=== PATIENT | female | born 1985 | race Caucasian/White ===

== ENCOUNTER 2017-01-17 10:33 | Inpatient (IN) | payer OTHER ==
[~2017-01-17] VITALS: Ht 149.9 cm; Wt 43.0 kg
[2017-01-17 10:39] VITALS: BP 101/59; PULSE 83; RESP 20; TEMP 98.9; O2SAT 100
[2017-01-17] MEDS ORDERED: PREN1TAB58 (10:45)
[2017-01-17] MEDS ORDERED: SODIUM CHLOR 0.9% 1000 ML INJ 1,000 ML IV ONE ×2 (10:58→13:00)
--- NOTE | 2017-01-17 10:59 | PD ---
HPI Chief Complaint: Related Problem Time Seen by Provider: 10:59 Travel History International Travel<30 days: No Contact w/Intl Traveler<30days: No Traveled to known affect area: No History of Present Illness HPI 31-year-old female presents to the emergency department for evaluation of abdominal pain that started approximately 2 hours prior to arrival. Patient states she is 8 weeks . Her last menstrual cycle was November 16, 2016. Her vocal teacher is Dr. Forte. Patient is a P2, G0 with a previous miscarriage. She states that the previous miscarriages found on a routine ultrasound and she was giving medication and she passed the products of conception herself. The patient states that she did have some vaginal bleeding approximately 2-3 weeks ago. She states it was spotting and she followed with her vocal teacher since who has been following her beta hCG levels. She states that her last beta hCG level was approximately one half weeks ago and was around 3000. She states she had a bowel movement yesterday. She states that she did strain it had a small amount of vaginal bleeding at that time. She denies any vaginal bleeding at this time. The patient denies any fevers or chills. No chest pain or shortness of breath. She has no previous abdominal problems or surgeries. Patient states that she called her vocal teacher who is out of the country and was recommended to come to the emergency department. PFSH Past Medical History ?: LMP: NOVEMBER 16 : 2 Miscarriage: 1 Social History Alcohol Use: No Tobacco Use: No Substance Use: No Allergies-Medications (Allergen,Severity, Reaction): Coded Allergies: No Known Allergies (Unverified , 01/17/17) Reported Meds & Prescriptions Reported Meds & Active Scripts Active Reported Ketorolac (Ketorolac Tromethamine) 10 Mg Tab 10 Mg PO Q6HR PRN Vitamin Formula Tb ( Vit/Iron Fumarate/FA) 1 Each Tablet DAILY Review of Systems Except as stated in HPI: all other systems reviewed are Neg Physical Exam Narrative GENERAL: Well-nourished, well-developed female patient, afebrile. SKIN: Focused skin assessment warm/dry. HEAD: Normocephalic. Atraumatic. EYES: No scleral icterus. No injection or drainage. NECK: Supple, trachea midline. No JVD or lymphadenopathy. CARDIOVASCULAR: Regular rate and rhythm without murmurs, gallops, or rubs. RESPIRATORY: Breath sounds equal bilaterally. No accessory muscle use. Lungs sounds are clear to auscultation. GASTROINTESTINAL: Abdomen soft and nondistended. Patient has diffuse tenderness to palpation, worse around umbilicus and pelvic region. MUSCULOSKELETAL: No cyanosis, or edema. BACK: Nontender without obvious deformity. No CVA tenderness. Data Data Last Documented VS Vital Signs Date Time Temp Pulse Resp B/P Pulse Ox O2 Delivery O2 Flow Rate FiO2 01/17/17 13:01 86 20 101/61 100 Room Air 01/17/17 10:39 98.9 Orders Beta Hcg (Quant/Titer) (01/17/17 10:58) Complete Blood Count With Diff (01/17/17 10:58) Comprehensive Metabolic Panel (01/17/17 10:58) Complete Rh (01/17/17 10:58) Urinalysis - C+S If Indicated (01/17/17 10:58) Iv Access Insert/Monitor (01/17/17 10:58) Sodium Chlor 0.9% 1000 Ml Inj (Ns 1000 M (01/17/17 10:58) Ed Urine Pregnancytest Poc (01/17/17 10:58) Acetaminophen (Tylenol) (01/17/17 11:00) Ed Poc Ultrasound (01/17/17 ) Morphine Inj (Morphine Inj) (01/17/17 11:15) Ondansetron Inj (Zofran Inj) (01/17/17 11:30) Sodium Chlor 0.9% 1000 Ml Inj (Ns 1000 M (01/17/17 13:00) Us Pelvis (Ques Pr/Ect)W Trans (01/17/17 ) Admit Order (Ed Use Only) (01/17/17 13:38) Labs Laboratory Tests Test 01/17/17 01/17/17 11:18 11:37 White Blood Count 5.7 TH/MM3 Red Blood Count 3.62 MIL/MM3 Hemoglobin 11.0 GM/DL Hematocrit 32.8 % Mean Corpuscular Volume 90.8 FL Mean Corpuscular Hemoglobin 30.5 PG Mean Corpuscular Hemoglobin 33.6 % Concent Red Cell Distribution Width 13.9 % Platelet Count 186 TH/MM3 Mean Platelet Volume 9.1 FL Neutrophils (%) (Auto) 70.9 % Lymphocytes (%) (Auto) 21.3 % Monocytes (%) (Auto) 6.6 % Eosinophils (%) (Auto) 0.8 % Basophils (%) (Auto) 0.4 % Neutrophils # (Auto) 4.0 TH/MM3 Lymphocytes # (Auto) 1.2 TH/MM3 Monocytes # (Auto) 0.4 TH/MM3 Eosinophils # (Auto) 0.0 TH/MM3 Basophils # (Auto) 0.0 TH/MM3 CBC Comment DIFF FINAL Differential Comment Sodium Level 137 MEQ/L Potassium Level 4.1 MEQ/L Chloride Level 107 MEQ/L Carbon Dioxide Level 23.2 MEQ/L Anion Gap 7 MEQ/L Blood Urea Nitrogen 10 MG/DL Creatinine 0.56 MG/DL Estimat Glomerular Filtration 128 ML/MIN Rate Random Glucose 91 MG/DL Calcium Level 8.4 MG/DL Total Bilirubin 0.5 MG/DL Aspartate Amino Transf 12 U/L (AST/SGOT) Alanine Aminotransferase 17 U/L (ALT/SGPT) Alkaline Phosphatase 43 U/L Total Protein 6.4 GM/DL Albumin 3.6 GM/DL Human Chorionic Gonadotropin, 6633 MIU/ML Quant Blood Type O POSITIVE Rho(D) Type POSITIVE Urine Color LIGHT-YELLOW Urine Turbidity CLEAR Urine pH 6.5 Urine Specific [place] 1.007 Urine Protein NEG mg/dL Urine Glucose (UA) NEG mg/dL Urine Ketones TRACE mg/dL Urine Occult Blood NEG Urine Nitrite NEG Urine Bilirubin NEG Urine Urobilinogen LESS THAN 2.0 MG/DL Urine Leukocyte Esterase NEG Urine RBC LESS THAN 1 /hpf Urine WBC LESS THAN 1 /hpf Urine Squamous Epithelial 1 /hpf Cells Urine Mucus FEW /lpf Microscopic Urinalysis Comment CULT NOT INDICATED MDM Medical Decision Making Medical Screen Exam Complete: Yes Emergency Medical Condition: Yes Medical Record Reviewed: Yes Interpretation(s) Last Impressions Pelvis Ultrasound 01/17/17 0000 Signed Impressions: Service Date/Time: Tuesday, January 17, 2017 12:19 - CONCLUSION: Right adnexal tubal ring structure suspicious for ectopic and within the uterus there is a sac could potentially be pseudo-gestational sac, however a yolk sac and questionable pole is also identified. Possibility of an early intrauterine gestational and ectopic in the right adnexa should be entertained although rare. Roscoe Swain MD Differential Diagnosis Ectopic versus threatened miscarriage versus intrauterine versus UTI Narrative Course 31-year-old female presents to the emergency department for evaluation of pelvic abdominal pain that started 2 hours prior to arrival. Patient is approximately 8 weeks . CBC, CMP, beta hCG, complete RH, UA, urine test are ordered and pending. My attending physician, Dr. Gutiérrez, performed bedside ultrasound and was unable to visualize intrauterine at this time. Formal ultrasound is ordered. UPT is positive. CBC shows hemoglobin 11.0, had hematocrit 32.8. CMP shows no acute abnormality. Beta HCG is 6633. UA is negative for acute infection. Blood type is O+. Dr. Gutiérrez saw US as it was being done and called OB hospitalist for ruptured ectopic . She admitted patient. Komal Hendrickson Jan 17, 2017 10:59
[2017-01-17] MEDS ORDERED: ACETAMINOPHEN 325 MG TAB PO ONE (11:00)
[2017-01-17] MEDS ORDERED: MORPHINE SULFATE 8 MG/ML INJ IV PUSH ONE (11:15)
[2017-01-17] MEDS ORDERED: ONDANSETRON HCL 4 MG/2 ML VIAL IV PUSH ONE ×2 (11:30→12:00)
[2017-01-17 11:41] LABS: BASOPHIL % 0.4 % (0.0-2.0); EOSINOPHIL % 0.8 % (0.0-4.0); HEMATOCRIT 32.8 % (35.0-46.0); HEMO FLAGS DIFF FINAL; LYMPH % 21.3 % (9.0-44.0); LYMPHOCYTE # 1.2 TH/MM3 (1.0-4.8); MEAN CELL VOLUME 90.8 FL (80.0-100.0); MEAN CORPUSCULAR HEMOGLOBIN 30.5 PG (27.0-34.0); MEAN CORPUSCULAR HGB CONC 33.6 % (32.0-36.0); MONO % 6.6 % (0.0-8.0); NEUT % 70.9 % (16.0-70.0); PLATELET COUNT 186 TH/MM3 (150-450); RED BLOOD COUNT 3.62 MIL/MM3 (4.00-5.30); RED CELL DISTRIBUTION WIDTH 13.9 % (11.6-17.2); WHITE BLOOD COUNT 5.7 TH/MM3 (4.0-11.0)
[2017-01-17 11:53] LABS: ANION GAP 7 MEQ/L (5-15); AST (GOT) 12 U/L (15-37); BICARBONATE 23.2 MEQ/L (21.0-32.0); BLOOD UREA NITROGEN 10 MG/DL (7-18); CHLORIDE 107 MEQ/L (98-107); GLOMERULAR FILTRATION RATE 128 ML/MIN (>89); POTASSIUM 4.1 MEQ/L (3.5-5.1); SODIUM (NA) 137 MEQ/L (136-145)
[2017-01-17] MEDS ORDERED: NEOSTIGMINE 3 MG/3 ML SYR IV ONE (12:00)
[2017-01-17] MEDS ORDERED: KETOROLAC TROMETHAMINE 60 MG/2 ML (IM) VIAL IM ONE (12:00)
[2017-01-17] MEDS ORDERED: LACTATED RINGER'S 1000 ML INJ 2,000 ML IV ONE (12:00)
[2017-01-17] MEDS ORDERED: PROPOFOL 200 MG/20 ML AMP IV ONE (12:00)
[2017-01-17 12:11] LABS: ALKALINE PHOSPHATASE 43 U/L (45-117); ALT (GPT) 17 U/L (10-53); BETA HCG QUANT 6633 MIU/ML (0-5); TOTAL BILIRUBIN ADULT 0.5 MG/DL (0.2-1.0)
[2017-01-17 12:21] LABS: BLOOD, URINE NEG (NEG); COMMENT (UR) CULT NOT INDICATED; CULTURE IF INDICATED CULT NOT INDICATED; GLUCOSE,URINE NEG (NEG); KETONE, URINE TRACE mg/dL (NEG); MUCUS URINE FEW /lpf (OCC); NITRITE,URINE NEG (NEG); PH, URINE 6.5 (5.0-8.5); SQUAMOUS EPITHELIAL CELL URINE 1 /hpf (0-5); URINE COLOR LIGHT-YELLOW (YELLW/STRAW)
[2017-01-17 13:01] VITALS: BP 101/61; PULSE 86; RESP 20; O2SAT 100
--- NOTE | 2017-01-17 13:27 | RADRPT ---
EXAM DATE/TIME: 01/17/2017 12:19 [facility] COMPARISON: No previous studies available for comparison. INDICATIONS : Pelvic pain. LAB(S): Beta-hC,633 MEDICAL HISTORY : . SURGICAL HISTORY : None. ENCOUNTER: Initial ACUITY: 1 day PAIN SCORE: 8/10 LOCATION: Bilateral pelvis MEASUREMENTS: UTERUS: 9.2 x 5.2 x 4.4 cm ENDOMETRIAL STRIPE: 6 mm RIGHT OVARY: 2.0 x 2.2 x 1.5 cm LEFT OVARY: 2.4 x 2.1 x 2.2 cm FREE FLUID: Yes posterior cul de sac and bilateral adnexas CROWN RUMP LENGTH: 0.2 cm = 5 WKS 5 DAYS FHR: Nonvisualized BPM FINDINGS: There is a small sac within the uterine cavity which measures 1.4 cm (5 weeks and 2 days). A yolk sac is present and there is a questionable polecorresponding to 5 weeks and 5 days without any fet al heartbeat. There is a cyst in the left ovary most likely functional measures 1.7 cm, however in th e right adnexa adjacent to the right ovary there is a tubular ring appearing structure suspicious for ectopic . There is moderate amount of fluid in the cul-de-sac. CONCLUSION: Right adnexal tubal ring structure suspicious for ectopic and within the uterus there is a sac could potentially be pseudo-gestational sac, however a yolk sac and questionable pole is al so identified. Possibility of an early intrauterine gestational and ectopic in th e right adnexa should be entertained although rare. Roscoe Swain MD on January 17, 2017 at 13:20 Board Certified Radiologist. This report was verified electronically.
--- NOTE | 2017-01-17 13:40 | PD ---
HPI Chief Complaint abdominal pain, ruptured ectopic Date Seen: Jan 17, 2017 Time Seen: 13:30 Travel History International Travel<30 Days: No Contact w/Intl Traveler<30Days: No Known Affected Area: No History of Present Illness HPI 31y/o presents with acute onset of generalized abdominal pain at 9am. She reports to me that the pain is generalized, but per a review of the records , pain was L>R. She reports this is a desired and her primary physician Dr. Forte has been following her hormone levels. Her LMP is 11/16/16, she believes she is about 8w gestational age by her LMP but reports she has not yet had an US. She doesn't have the dates of her quant levels but reports they went from 87->250->??->3000s. She reports the level in the 3000s was about 1/2 week ago. She reports she had a miscarriage last year. She reports she had some spotting several weeks ago which prompted a visit to the ED and the follow up quant levels. She denies any VB, but reports a trace of spotting after the speculum exam in the ED. She reports her pain is better with lying in the position and worse in any other positions like sitting up. Her pain is better after receiving morphine. This is a spontaneous and she has no h/o IVF or other fertility intervention. Para: 0 : 2 Last Menstrual Period: November 16, 2016 Miscarriage: 0 : 0 History Past Medical History Narrative Medical Denies Obstetric History Obstetric History SAB x1 Menarche at 15 Menses q month Menses last 3-5d Denies h/o abnl PAPs or STDs Last PAP 12/12 Past Surgical History Narrative Surgical Denies Family History Narrative Family History DM Social History Alcohol Use: No Tobacco Use: No Substance Abuse: No Allergies-Medications (Allergen,Severity, Reaction): Coded Allergies: No Known Allergies (Unverified , 01/17/17) Home Meds Reported Medications Vit/Iron Fumarate/FA ( Vitamin Formula Tb)1 Each Tablet Daily 01/17/17 Review of Systems Except as stated in HPI: all other systems reviewed are Neg Gastrointestinal: Abdominal Pain Physical Exam Vital Signs Date Time Temp Pulse Resp B/P Pulse Ox O2 Delivery O2 Flow Rate FiO2 01/17/17 13:01 86 20 101/61 100 Room Air 01/17/17 10:39 98.9 83 20 101/59 100 Narrative GENERAL: Well-nourished, well-developed patient. NAD, but evidence of recent crying. SKIN: Warm and dry. HEAD: Normocephalic and atraumatic. EYES: No scleral icterus. No injection or drainage. ENT: No nasal drainage noted. Mucous membranes pink. Airway patent. NECK: Supple, trachea midline. No JVD. CARDIOVASCULAR: Regular rate and rhythm without murmurs, gallops, or rubs. RESPIRATORY: Breath sounds equal bilaterally. No accessory muscle use. BREASTS: Bilateral exam showed no masses , no retractions, no nipple discharge. ABDOMEN/GI: Abdomen soft, tender, bowel sounds present, no rebound, voluntary guarding noted GENITOURINARY: deferred EXTREMITIES: No cyanosis or edema. BACK: Nontender without obvious deformity. No CVA tenderness. NEUROLOGICAL: Awake and alert. Motor and sensory grossly within normal limits. Five out of 5 muscle strength in all muscle groups. Normal speech. MS: grossly normal ROM, gait, muscle strength PSYCH: grossly normal ROM, gait, muscle strength Data Data Orders Beta Hcg (Quant/Titer) (01/17/17 10:58) Complete Blood Count With Diff (01/17/17 10:58) Comprehensive Metabolic Panel (01/17/17 10:58) Complete Rh (01/17/17 10:58) Urinalysis - C+S If Indicated (01/17/17 10:58) Iv Access Insert/Monitor (01/17/17 10:58) Sodium Chlor 0.9% 1000 Ml Inj (Ns 1000 M (01/17/17 10:58) Ed Urine Pregnancytest Poc (01/17/17 10:58) Acetaminophen (Tylenol) (01/17/17 11:00) Ed Poc Ultrasound (01/17/17 ) Morphine Inj (Morphine Inj) (01/17/17 11:15) Ondansetron Inj (Zofran Inj) (01/17/17 11:30) Sodium Chlor 0.9% 1000 Ml Inj (Ns 1000 M (01/17/17 13:00) Us Pelvis (Ques Pr/Ect)W Trans (01/17/17 ) Admit Order (Ed Use Only) (01/17/17 13:38) Labs Laboratory Tests Test 01/17/17 01/17/17 11:18 11:37 White Blood Count 5.7 Red Blood Count 3.62 Hemoglobin 11.0 Hematocrit 32.8 Mean Corpuscular Volume 90.8 Mean Corpuscular Hemoglobin 30.5 Mean Corpuscular Hemoglobin 33.6 Concent Red Cell Distribution Width 13.9 Platelet Count 186 Mean Platelet Volume 9.1 Neutrophils (%) (Auto) 70.9 Lymphocytes (%) (Auto) 21.3 Monocytes (%) (Auto) 6.6 Eosinophils (%) (Auto) 0.8 Basophils (%) (Auto) 0.4 Neutrophils # (Auto) 4.0 Lymphocytes # (Auto) 1.2 Monocytes # (Auto) 0.4 Eosinophils # (Auto) 0.0 Basophils # (Auto) 0.0 CBC Comment DIFF FINAL Differential Comment Sodium Level 137 Potassium Level 4.1 Chloride Level 107 Carbon Dioxide Level 23.2 Anion Gap 7 Blood Urea Nitrogen 10 Creatinine 0.56 Estimat Glomerular Filtration 128 Rate Random Glucose 91 Calcium Level 8.4 Total Bilirubin 0.5 Aspartate Amino Transf 12 (AST/SGOT) Alanine Aminotransferase 17 (ALT/SGPT) Alkaline Phosphatase 43 Total Protein 6.4 Albumin 3.6 Human Chorionic Gonadotropin, 6633 Quant Blood Type O POSITIVE Rho(D) Type POSITIVE Urine Color LIGHT-YELLOW Urine Turbidity CLEAR Urine pH 6.5 Urine Specific [place] 1.007 Urine Protein NEG Urine Glucose (UA) NEG Urine Ketones TRACE Urine Occult Blood NEG Urine Nitrite NEG Urine Bilirubin NEG Urine Urobilinogen LESS THAN 2.0 Urine Leukocyte Esterase NEG Urine RBC LESS THAN 1 Urine WBC LESS THAN 1 Urine Squamous Epithelial 1 Cells Urine Mucus FEW Microscopic Urinalysis Comment CULT NOT INDICATED MDM Plan A/P: 31y/o 1. Presumed ruptured ectopic : patient with apparent hemoperitoneum, no obvious IUP (although per radiology possible psueodcyst vs heterotopic , visualization of images does not appear to have IUP), and quantitative Bhcg well above the discriminatory zone at 6633. Discussed need for surgical intervention at this time due to suspected rupture of ectopic. Discussed possible surgical procedures including laparoscopy with salpingostomy vs salpingectomy with likely removal of fallopian tube, possible salpingoophorectomy, possible exploratory laparotomy. Discussed with patient that many physicians will remove the fallopian tube in the case of a ruptured ectopic . Case discussed with Dr. Chandra who agreed to assume care for patient and will plan for salpingectomy. Discussed with patient that Dr. Chandra would be assuming her care and would be proceeding with surgical intervention with laparoscopic removal of fallopian tube and any other indicated procedures as we had previously discussed. All of the patients questions were answered and consents were signed after discussion of surgical risks including but not limited to pain, infection, bleeding, injury to other organs (bladder, bowels, nerves, vessels), transfusion, need for additional procedures, need for exploratory laparotomy as above, wound infection, and other possible complications. Discussed that ectopics can happen spontaneously and may be increased by h/o pelvic infection and smoking; pt denies either. Discussed that patient will have one remaining fallopian tube and will likely remain her fertility through this tube. 2. O+ 3. Hgb 11.[address] Chandra who assumed care for patient. Cheli Mathis MD Jan 17, 2017 13:40
[2017-01-17] MEDS ORDERED: LACTATED RINGER'S 1000 ML INJ 1,000 ML IV ONE (13:43)
--- NOTE | 2017-01-17 13:58 | PD ---
Data Data Last Documented VS Vital Signs Date Time Temp Pulse Resp B/P Pulse Ox O2 Delivery O2 Flow Rate FiO2 01/17/17 13:01 86 20 101/61 100 Room Air 01/17/17 10:39 98.9 Orders Beta Hcg (Quant/Titer) (01/17/17 10:58) Complete Blood Count With Diff (01/17/17 10:58) Comprehensive Metabolic Panel (01/17/17 10:58) Complete Rh (01/17/17 10:58) Urinalysis - C+S If Indicated (01/17/17 10:58) Iv Access Insert/Monitor (01/17/17 10:58) Sodium Chlor 0.9% 1000 Ml Inj (Ns 1000 M (01/17/17 10:58) Ed Urine Pregnancytest Poc (01/17/17 10:58) Acetaminophen (Tylenol) (01/17/17 11:00) Ed Poc Ultrasound (01/17/17 ) Morphine Inj (Morphine Inj) (01/17/17 11:15) Ondansetron Inj (Zofran Inj) (01/17/17 11:30) Sodium Chlor 0.9% 1000 Ml Inj (Ns 1000 M (01/17/17 13:00) Us Pelvis (Ques Pr/Ect)W Trans (01/17/17 ) Admit Order (Ed Use Only) (01/17/17 13:38) Labs Laboratory Tests Test 01/17/17 01/17/17 11:18 11:37 White Blood Count 5.7 TH/MM3 Red Blood Count 3.62 MIL/MM3 Hemoglobin 11.0 GM/DL Hematocrit 32.8 % Mean Corpuscular Volume 90.8 FL Mean Corpuscular Hemoglobin 30.5 PG Mean Corpuscular Hemoglobin 33.6 % Concent Red Cell Distribution Width 13.9 % Platelet Count 186 TH/MM3 Mean Platelet Volume 9.1 FL Neutrophils (%) (Auto) 70.9 % Lymphocytes (%) (Auto) 21.3 % Monocytes (%) (Auto) 6.6 % Eosinophils (%) (Auto) 0.8 % Basophils (%) (Auto) 0.4 % Neutrophils # (Auto) 4.0 TH/MM3 Lymphocytes # (Auto) 1.2 TH/MM3 Monocytes # (Auto) 0.4 TH/MM3 Eosinophils # (Auto) 0.0 TH/MM3 Basophils # (Auto) 0.0 TH/MM3 CBC Comment DIFF FINAL Differential Comment Sodium Level 137 MEQ/L Potassium Level 4.1 MEQ/L Chloride Level 107 MEQ/L Carbon Dioxide Level 23.2 MEQ/L Anion Gap 7 MEQ/L Blood Urea Nitrogen 10 MG/DL Creatinine 0.56 MG/DL Estimat Glomerular Filtration 128 ML/MIN Rate Random Glucose 91 MG/DL Calcium Level 8.4 MG/DL Total Bilirubin 0.5 MG/DL Aspartate Amino Transf 12 U/L (AST/SGOT) Alanine Aminotransferase 17 U/L (ALT/SGPT) Alkaline Phosphatase 43 U/L Total Protein 6.4 GM/DL Albumin 3.6 GM/DL Human Chorionic Gonadotropin, 6633 MIU/ML Quant Blood Type O POSITIVE Rho(D) Type POSITIVE Urine Color LIGHT-YELLOW Urine Turbidity CLEAR Urine pH 6.5 Urine Specific [place] 1.007 Urine Protein NEG mg/dL Urine Glucose (UA) NEG mg/dL Urine Ketones TRACE mg/dL Urine Occult Blood NEG Urine Nitrite NEG Urine Bilirubin NEG Urine Urobilinogen LESS THAN 2.0 MG/DL Urine Leukocyte Esterase NEG Urine RBC LESS THAN 1 /hpf Urine WBC LESS THAN 1 /hpf Urine Squamous Epithelial 1 /hpf Cells Urine Mucus FEW /lpf Microscopic Urinalysis Comment CULT NOT INDICATED MDM Supervised Visit with EDITH: Yes Narrative Course I, Dr. Gutiérrez, have reviewed the advance practice practioner's documentation and am in agreement, met with the patient face to face, made the diagnosis, and the medical decision making was done by me. *My assessment and Findings: 31-year-old at approximately 8 weeks 3 days based on LMP of 11/16/16 here with complaint of abdominal pain. Patient has been followed by Dr. Forte throughout this for serial beta hCGs that she's been having some cramping and had previous bleeding approximately 2-3 weeks ago. Her last beta- hCG approximately 1.5 weeks ago was around 3000. Patient has not had any vaginal bleeding today, but states that she had a fairly sudden onset of worsening of her abdominal pain. This is primarily periumbilical, but does radiate down into the pelvis. Vital signs normal, patient has diffuse abdominal tenderness to palpation, no rebound but does have some voluntary guarding. Differential include , ectopic , threatened AB, missed AB, inevitable AB, UTI, appendicitis. Bedside ultrasound performed, no obvious intrauterine , please see procedure note. Beta Quant was 6633. O+. Formal ultrasound shows right sided ectopic , fallopian tube versus ovary. Gestational sac measures approximately 1.5 x 1.2 cm with yolk sac, no obvious pole or heart rate. Patient does have a moderate amount of free fluid in the abdomen consistent with ruptured ectopic and hemoperitoneum. I called and spoke with Dr. Echevarria who is on-call for patient's IT ACCOUNT MANAGER Dr. Forte. Unfortunately he does not have privileges here. I spoke with Dr. Elsa Mathis, OB hospitalist was extremely helpful, came to the ED and evaluated patient and spoke with Dr. Chandra of [facility] who will take patient to go our for operative management. Patient remained hemodynamically stable throughout ED course. Plan of care discussed with patient and her significant other. Critical Care Narrative Aggregate critical care time was 35 minutes. Time to perform other separately billable procedures was not included in the critical care time. My time did not include minutes spent treating any other patients simultaneously or on activities that did not directly contribute to the patient's treatment. The services I provided to this patient were to treat and/or prevent clinically significant deterioration that could result in: Cardio pulmonary decompensation , hemorrhage, , disability I provided critical care services requiring my management, as noted below: Chart data review, documentation time, medication orders and management, vital sign assessments/reviewing monitor data, ordering and reviewing lab tests, ordering and interpreting/reviewing x-rays and diagnostic studies, care of the patient and discussion of the patient with the admitting physicians. Procedures Procedure Narrative Emergency Department Pelvic ultrasound was performed with patient consent. The curvilinear probe was used in the transverse and sagittal views within the suprapubic region revealing no evidence of intrauterine . Diagnosis Primary Impression: Hemoperitoneum due to rupture of right tubal ectopic Admitting Information Admitting Physician Requests: Admit Mayi Gutiérrez MD Jan 17, 2017 13:58
[2017-01-17] MEDS ORDERED: LIDOCAINE 1%/EPINEPHrine 1:100,000 SOLN 20 ML VIAL ONE (14:00)
[2017-01-17] MEDS ORDERED: LACTATED RINGER'S 1000 ML INJ 1,000 ML IV SCH (14:13)
[2017-01-17] MEDS ORDERED: ceFAZolin INJ 1,000 MG VIAL IV ONE (14:28)
[2017-01-17] MEDS ORDERED: ACETAMINOPHEN 1000 MG/100 ML VIAL IV ONE (14:39)
[2017-01-17] MEDS ORDERED: fentaNYL CITRATE 250 MCG/5 ML AMP ONE (14:39)
--- NOTE | 2017-01-17 14:50 | MH ---
cc: VICKY OROPEZA MD,MAT Wray M.D. DATE OF ADMISSION: 01/17/2017 CHIEF COMPLAINT: Ruptured ectopic . HISTORY OF PRESENT ILLNESS: The patient is an established patient of Dr. Forte with [facility]. The patient has been followed for an ectopic . She had sudden onset of right-sided pain and came to [facility] to be evaluated. She had an hCG of 6300 ruptured ectopic suggestive on the sonogram. [facility] does not have privileges at this hospital, so I was called to manage the patient. PAST MEDICAL HISTORY: The patient's medical history is negative for heart, lung, liver disease, hypertension, diabetes or stroke. PAST SURGICAL HISTORY: None. OB HISTORY: One prior miscarriage. This has been followed since approximately four weeks gestation. No significant issues with the up to this point per patient report. ALLERGIES: NONE. SOCIAL HISTORY: No nicotine or drugs. Has good social support. FAMILY HISTORY: Noncontributory GYNECOLOGIC HISTORY: No STDs. No abnormal Pap smears. No history of PID. REVIEW OF SYSTEMS: The review of systems is as above. Right-sided pain, nausea, diarrhea, no fever or chills, no shortness of breath. Further review of systems is negative. PHYSICAL EXAMINATION: VITAL SIGNS: On her exam, she is afebrile. Vital signs are stable. Blood pressure is 110/70. Heart rate 90. BMI is 19. GENERAL: The patient is alert and oriented and in no acute distress. No sign of cognitive dysfunction or depression. HEAD, EYES, EARS, NOSE, THROAT: Within normal limits. NECK: The neck is supple. No JVD. CHEST: Clear. HEART: Regular rate and rhythm. ABDOMEN: Abdomen soft but there is some tenderness on the right side and in the midline. No costovertebral angle tenderness. PELVIC EXAM: To be detailed under anesthesia. EXTREMITIES: Normal. SKIN: Without rash. NEUROLOGIC: Nonfocal. No DVT signs. LABORATORY DATA: Hematocrit 32. White count 5.7. HCG is 6633. Liver function tests normal. Urinalysis negative. Blood type A+ ASSESSMENT: Patient with a ruptured ectopic right side. Perhaps there is a pseudo sac within the uterus, it would be unlikely to have a heterotopic , but it is a possibility and since this is a desired , we will not perform a suction D&C in the same setting. The patient and I discussed options for management and treatment. She actually has very little in terms of options except surgery with the ruptured ectopic. The main issue is laparotomy versus laparoscopy. We will attempt to proceed with laparoscopy. She is aware there will be at least three incisions. She is aware that the tube on the right may be sacrificed and there may be some impairment in fertility down the road. At this point, questions were answered to the patient's satisfaction. She received Ancef 1 gram IV, DVT prophylaxis with sequential compression devices and anticipate outpatient procedure, provided she meets discharge criteria. MD BINU See/VALENTINE /2:30 PM /2:44 PM PARESH
[2017-01-17] MEDS ORDERED: CITRIC ACID-SODIUM CITRATE LIQ 30 ML UDC PO SCH (15:15)
[2017-01-17] MEDS ORDERED: DO NOT ADM ANY ANTICOAGULANT DRUGS PRN (15:41)
[2017-01-17 15:45] VITALS: TEMP 97.5
[2017-01-17] MEDS ORDERED: ACETAMINOPHEN/HYDROcodone 325 MG/5 MG TAB PO PRN (15:45)
[2017-01-17] MEDS ORDERED: KETOROLAC TROMETHAMINE 30 MG/ML (IVP) VIAL IVP PRN (15:45)
[2017-01-17] MEDS ORDERED: ONDANSETRON HCL 4 MG/2 ML VIAL IV PUSH PRN (15:45)
--- NOTE | 2017-01-17 15:51 | PD.OP ---
Operative Report Date of Surgery: Jan 17, 2017 Preoperative Diagnosis: (1) Hemoperitoneum due to rupture of right tubal ectopic Postoperative Diagnosis: (1) Hemoperitoneum due to rupture of right tubal ectopic Procedure: RIGHT SALPINGECTOMY Anesthesia: GET/OGT Surgeon: Asad Chandra Insulation And Flooring Assembler[place] [facility] [place] and Findings: 400 CC BLOOD UPON ENTRY RIGHT TUBAL NORMAL LEFT TUBE AND OVARY, RIGHT OVARY, UPPER ABDOMEN Asad Chandra MD Jan 17, 2017 15:51
[2017-01-17] MEDS ORDERED: *RESP: ALBUTEROL 2.5 MG/3 ML NEB (PRN) PERIprocedural Use ONLY NEB ONE (15:52)
[2017-01-17] MEDS ORDERED: *MEPERIDINE 25 MG INJ VIAL PERIprocedural Use ONLY ONE (15:59)
[2017-01-17] MEDS ORDERED: *ONDANSETRON 4 MG VIAL PERIprocedural Use ONLY ONE (16:03)
[2017-01-17 16:15] VITALS: BP 106/57; PULSE 72; RESP 16; O2SAT 97
[2017-01-17] MEDS ORDERED: *PROMETHAZINE 25 MG/ML VIAL PERIprocedural use ONLY ONE (16:41)
[2017-01-17] MEDS ORDERED: KETO10 PO (16:46)
--- NOTE | 2017-01-19 11:09 | MP ---
cc: ASAD OROPEZA MD, MEETESH S. M.D. DATE OF SURGERY 01/17/2017 PREOPERATIVE DIAGNOSES Ruptured ectopic right side. POSTOPERATIVE DIAGNOSES Ruptured ectopic right side. PROCEDURE Laparoscopic right salpingectomy. SURGEON Asad Oropeza MD ANESTHESIA General endotracheal with OG tube GEOTECHNICAL ENGINEER [facility] staff x1 FLUIDS 2000 cc of crystalloid URINE OUTPUT 200 cc ESTIMATED BLOOD LOSS 400 cc of blood upon entry into the abdominal cavity, 5 cc operative blood loss FINDINGS External POP-Q score: Aa is -3, Ap is -3. Point C is -8. Total vaginal length is 10. Genital hiatus is 4. Perineal body is 5. Uterus is anteverted and anteflexed approximately eight weeks size. Internal anatomy shows large ectopic on the right side close to the cornu but not quite cornual . The ovary on the right is normal. The left tube and ovary normal. Upper abdomen normal. No sign of Orru-Iaif-Yysizt or other abnormalities suggestive of PID. No sign of endometriosis. Bowel is mobile. Appendix is normal. SPECIMENS Right tube with ectopic COMPLICATIONS None DISPOSITION AND PLAN To recovery stable. COUNTS Needle and sponge counts correct. DRAINS Hanna catheter ANTIBIOTIC PROPHYLAXIS Ancef flow one gram DVT PROPHYLAXIS Sequential compression device. TIME OUT PROCEDURE Per protocol SUMMARY OF INDICATIONS FOR THE PROCEDURE The patient is a 22-year-old female 2, para 1 at approximately eight weeks' gestation. She is followed by Dr. Kenan Forte and was noted to have a suspected ectopic . She had an ECG in his office that was in the 300 range. She presented to the emergency room at [facility] with complaint of right-sided pain. The HCG was 6300 and ultrasound showed moderate free fluid, a complex mass in the right and possibly a yolk sac inside the uterus as well. The patient was apprised of the situation and opted for a laparoscopic procedure and four going a D&C in case this represented a heterotopic . The patient was taken to the operating room theater, identified, prepped and draped in a fashion for the planned procedure. She was in the dorsolithotomy position with careful attention paid to placement of legs in the stirrups to avoid undue stress to sensitive vascular structures. The above findings noted. Neurovascular integrity documented. Hanna catheter was placed. The patient had umbilicus infiltrated with epinephrine/lidocaine solution. A small incision was made and a 5-mm scope was placed under direct visualization. Gas insufflated to a pressure of approximately 15 mm. The above findings were noted. Auxiliary trocar was placed under direct visualization in the left lower quadrant and approximately 4 cc's of blood was suctioned from the abdomen and pelvis. Once this was performed, we then were able to place a 10/12 trocar suprapubically under direct visualization. The tube on the right was obviously affected with ectopic gestation. The ovary on the right was normal. Tube and ovary on the left normal. I did not feel this was amenable to salpingostomy and the most prudent course was salpingectomy. Harmonic energy was used from across the mesosalpinx on the right and removed the tube and the ectopic gestation without complication. Gas was expressed. All areas were hemostatic with and without gas pressure. Inspection of the pelvis was repeated. Ureter was clear from the operative field on the right. There was no undue scarring, endometriosis or anything suspicious of PID anywhere in the pelvis or upper abdomen. The pelvis irrigated and hemostatic matrix was used for added reassurance of the areas of dissection. A suture closure device was employed to close the 10/12 port with a 0 Vicryl suture. The 10/12 port was also closed with a subcuticular stitch of 3-0 Vicryl and Dermabond. The 5 mm trocar sites were closed with 4-0 Monocryl and Dermabond. The patient reversed from anesthesia and taken to the recover room in stable condition. If she meets criteria, she will be discharge to the recovery room. In light of the fact there could be continued gestation, she needs to follow up with her radiation therapy technologist as well as follow up with me in my office for her postop surgical care. Blood type is A+. No need for RhoGAM. MD BINU See/ANGELIQUE /4:12 PM /12:34 PM
--- NOTE | 2017-01-19 11:11 | MP ---
cc: VICKY OROPEZA MD, MEETESH S. M.D. DATE OF SURGERY 01/17/2017 ADDENDUM Please send a copy of the op note to Dr. Kenan Forte at [facility] COACH OPERATOR. MD IBNU See/ANGELIQUE /4:18 PM /11:11 AM
== END 2017-01-17 17:25 | disposition home or self-care (01) | DRG 777 ==
LOC: NEPD 10:33 → NEDA 13:40
PROVIDERS: ADMIT Obstetrics & Gynecology Gynecology; ATTEND Obstetrics & Gynecology Gynecology
PROC: 10T24ZZ Resection of Products of Conception, Ectopic, Percutaneous Endoscopic Approach (ICD-10-PCS; 2017-01-17)
PROC: 0UT54ZZ Resection of Right Fallopian Tube, Percutaneous Endoscopic Approach (ICD-10-PCS; principal; 2017-01-17 14:20)
DX: O00.10 Tubal pregnancy without intrauterine pregnancy (principal); K66.1 Hemoperitoneum; Z3A.08 8 weeks gestation of pregnancy
CPT/HCPCS: 76700; 76817; 80053; 81001; 84702; 84703; 85025; 86850; 86900; 86901; 88305; 94664; 96361; 96374; 96375; J0131; J0690; J1885; J2175; J2270; J2405; J2550; J2710; J3010; J7030; J7120; J7613

== ENCOUNTER 2017-01-19 14:49 | Observation (INO) | payer OTHER ==
[~2017-01-19 14:49] MED LIST: KETO10 PO; PREN1TAB58
[2017-01-19 14:53] VITALS: BP 118/63; PULSE 73; RESP 14; TEMP 98.2; O2SAT 99
--- NOTE | 2017-01-19 16:02 | RADRPT ---
EXAM DATE/TIME: 01/19/2017 15:48 [facility] COMPARISON: No previous studies available for comparison. INDICATIONS : Left chest and arm pain. MEDICAL HISTORY : None. SURGICAL HISTORY : None. ENCOUNTER: Initial ACUITY: 1 day PAIN SCORE: 4/10 LOCATION: Left chest FINDINGS: A single view of the chest demonstrates the lungs to be symmetrically aerated without evidence of mas s, infiltrate or effusion. The cardiomediastinal contours are unremarkable. Osseous structures are intact. CONCLUSION: No acute cardiopulmonary process. Timur Thompson MD on January 19, 2017 at 16:00 Board Certified Radiologist. This report was verified electronically.
[2017-01-19 16:10] LABS: AUTOMATED NEUTROPHIL # 4.7 TH/MM3 (1.8-7.7); BASOPHIL % 0.6 % (0.0-2.0); EOSINOPHIL # 0.1 TH/MM3 (0-0.4); EOSINOPHIL % 1.8 % (0.0-4.0); HEMATOCRIT 32.2 % (35.0-46.0); HEMO FLAGS DIFF FINAL; LYMPH % 28.1 % (9.0-44.0); LYMPHOCYTE # 2.1 TH/MM3 (1.0-4.8); MEAN CORPUSCULAR HEMOGLOBIN 30.7 PG (27.0-34.0); MEAN CORPUSCULAR HGB CONC 33.8 % (32.0-36.0); NEUT % 63.5 % (16.0-70.0); PLATELET COUNT 185 TH/MM3 (150-450); RED BLOOD COUNT 3.54 MIL/MM3 (4.00-5.30); RED CELL DISTRIBUTION WIDTH 13.9 % (11.6-17.2); WHITE BLOOD COUNT 7.5 TH/MM3 (4.0-11.0)
--- NOTE | 2017-01-19 16:20 | PD ---
HPI Chief Complaint: Numbness/Tingling Time Seen by Provider: 16:04 Travel History International Travel<30 days: No Contact w/Intl Traveler<30days: No Traveled to known affect area: No History of Present Illness HPI 31yo F presents to the ED with c/o decreased sensation in left face and arm. States she woke up and had numbness in left arm at about 8am today and then at about 12am, her left face was numb as well. Pt just had a laparoscopic right salpingectomy by Dr. Chandra for ruptured ectopic on 01/17/17. Pt states her left chest also hurts when she takes a deep breath. Denies any fever , sob, vomiting, focal weakness, history of PE/DVT. Abdominal pain has not change since surgery. PFSH Past Medical History Respiratory: Yes (ASTHMA) ?: Not : 2 Miscarriage: 1 Social History Alcohol Use: No Tobacco Use: No Substance Use: No Allergies-Medications (Allergen,Severity, Reaction): Coded Allergies: No Known Allergies (Unverified , 01/19/17) Reported Meds & Prescriptions Reported Meds & Active Scripts Active Reported Ketorolac (Ketorolac Tromethamine) 10 Mg Tab 10 Mg PO Q6HR PRN Vitamin Formula Tb ( Vit/Iron Fumarate/FA) 1 Each Tablet DAILY Review of Systems Except as stated in HPI: all other systems reviewed are Neg Physical Exam Narrative GENERAL: 31yo F in mild distress. SKIN: Focused skin assessment warm/dry. HEAD: Atraumatic. Normocephalic. EYES: Pupils equal and round. No scleral icterus. No injection or drainage. ENT: No nasal bleeding or discharge. Mucous membranes pink and moist. NECK: Trachea midline. No JVD. CARDIOVASCULAR: Regular rate and rhythm. No murmur appreciated. RESPIRATORY: No accessory muscle use. Clear to auscultation. Breath sounds equal bilaterally. GASTROINTESTINAL: Abdomen soft, +Steristrip over incision site with mild ttp around incision site. Nondistended. MUSCULOSKELETAL: No obvious deformities. No clubbing. No cyanosis. No edema. NEUROLOGICAL: Awake and alert. Decreased sensation in left face V1-V3 as well as left arm. Normal speech. Muscle strength equal and 5/5 in all extremities. PSYCHIATRIC: Appropriate mood and affect; insight and judgment normal. Data Data Last Documented VS Vital Signs Date Time Temp Pulse Resp B/P Pulse Ox O2 Delivery O2 Flow Rate FiO2 01/19/17 18:32 80 16 99/56 99 Room Air 01/19/17 14:53 98.2 Orders Electrocardiogram (01/19/17 15:26) Complete Blood Count With Diff (01/19/17 15:26) Basic Metabolic Panel (Bmp) (01/19/17 15:26) Ckmb (Isoenzyme) Profile (01/19/17 15:26) Troponin I (01/19/17 15:26) Chest, Single Ap (01/19/17 15:26) Act Partial Throm Time (Ptt) (01/19/17 15:26) Prothrombin Time / Inr (Pt) (01/19/17 15:26) Ct Brain W/O Iv Contrast(Rout) (01/19/17 ) D-Dimer (01/19/17 16:13) CKMB (01/19/17 15:42) CKMB% (01/19/17 15:42) Ct Pulmonary Angiogram (01/19/17 ) Iohexol 350 Inj (Omnipaque 350 Inj) (01/19/17 19:24) Admit Order (Ed Use Only) (01/19/17 ) Vitamin B12 (01/19/17 15:42) C-Reactive Protein (Crp) (01/19/17 15:42) Folate, Serum (01/19/17 15:42) Thyroid Stimulating Hormone (01/19/17 15:42) Labs Laboratory Tests Test 01/19/17 01/19/17 15:42 16:20 White Blood Count 7.5 TH/MM3 Red Blood Count 3.54 MIL/MM3 Hemoglobin 10.9 GM/DL Hematocrit 32.2 % Mean Corpuscular Volume 91.0 FL Mean Corpuscular Hemoglobin 30.7 PG Mean Corpuscular Hemoglobin 33.8 % Concent Red Cell Distribution Width 13.9 % Platelet Count 185 TH/MM3 Mean Platelet Volume 9.5 FL Neutrophils (%) (Auto) 63.5 % Lymphocytes (%) (Auto) 28.1 % Monocytes (%) (Auto) 6.0 % Eosinophils (%) (Auto) 1.8 % Basophils (%) (Auto) 0.6 % Neutrophils # (Auto) 4.7 TH/MM3 Lymphocytes # (Auto) 2.1 TH/MM3 Monocytes # (Auto) 0.4 TH/MM3 Eosinophils # (Auto) 0.1 TH/MM3 Basophils # (Auto) 0.0 TH/MM3 CBC Comment DIFF FINAL Differential Comment Prothrombin Time 10.7 SEC Prothromb Time International 1.0 RATIO Ratio Activated Partial 26.3 SEC Thromboplast Time Sodium Level 140 MEQ/L Potassium Level 3.6 MEQ/L Chloride Level 107 MEQ/L Carbon Dioxide Level 26.0 MEQ/L Anion Gap 7 MEQ/L Blood Urea Nitrogen 8 MG/DL Creatinine 0.62 MG/DL Estimat Glomerular Filtration 114 ML/MIN Rate Random Glucose 86 MG/DL Calcium Level 9.0 MG/DL Total Creatine Kinase 469 U/L Creatine Kinase MB 0.8 NG/ML Creatine Kinase MB % 0.2 % Troponin I LESS THAN 0.02 NG/ML C-Reactive Protein 0.75 MG/DL Vitamin B12 Level 404 PG/ML Folate 18.4 NG/ML Thyroid Stimulating Hormone 0.785 uIU/ML 3rd Gen D-Dimer Quantitative (PE/DVT) 1.05 MG/L FEU [facility] Medical Decision Making Medical Screen Exam Complete: Yes Emergency Medical Condition: Yes Interpretation(s) EKG: NSR 65bpm. Normal axis. No ST segment elevation or depression. Differential Diagnosis CVA vs. conversion disorder vs. atypical chest pain vs. PE Narrative Course 31yo F with left face and arm numbness that started today. Labs reviewed, no leukocytosis. Troponin negative. CXR negative. D-dimer is elevated at 1.05. May be related to recent but pt does have risk factor for PE. Will do CT angio to r/o PE. Will do CT brain. Sign out to next team to follow up CT brain and CT angio. Diagnosis Primary Impression: Neurological deficit present Edna Andino DO Jan 19, 2017 16:20
[2017-01-19 16:25] LABS: ANION GAP 7 MEQ/L (5-15); BLOOD UREA NITROGEN 8 MG/DL (7-18); CHLORIDE 107 MEQ/L (98-107); GLOMERULAR FILTRATION RATE 114 ML/MIN (>89); POTASSIUM 3.6 MEQ/L (3.5-5.1); SODIUM (NA) 140 MEQ/L (136-145)
[2017-01-19 16:29] LABS: CREATINE KINASE 469 U/L (26-192)
[2017-01-19 16:31] LABS: APTT (PATIENT) 26.3 SEC (24.3-30.1); PROTHROMBIN TIME - PATIENT 10.7 SEC (9.8-11.6)
[2017-01-19 16:41] LABS: CKMB 0.8 NG/ML (0.5-3.6)
[2017-01-19 18:32] VITALS: BP 99/56; PULSE 80; RESP 16; O2SAT 99
[2017-01-19] MEDS ORDERED: IOHEXOL 350 MG/ML 10 ML VIAL (for RAD DIAG) IV ONE (19:24)
--- NOTE | 2017-01-19 19:30 | RADRPT ---
EXAM DATE/TIME: 01/19/2017 19:14 [facility] COMPARISON: No previous studies available for comparison. INDICATIONS : Patient confused and altered mental status. RADIATION DOSE: 39.11 CTDIvol (mGy) MEDICAL HISTORY : Asthma. SURGICAL HISTORY : None. ENCOUNTER: Initial ACUITY: 1 day PAIN SCALE: 4/10 LOCATION: Bilateral cranial TECHNIQUE: Multiple contiguous axial images were obtained of the head. Using automated exposure control and adj ustment of the mA and/or kV according to patient size, radiation dose was kept as low as reasonably a chievable to obtain optimal diagnostic quality images. DICOM format image data is available electro nically for review and comparison. FINDINGS: CEREBRUM: The ventricles are normal for age. No evidence of midline shift, mass lesion, hemorrhage or acute in farction. No extra-axial fluid collections are seen. POSTERIOR FOSSA: The cerebellum and brainstem are intact. The 4th ventricle is midline. The cerebellopontine angle i s unremarkable. EXTRACRANIAL: The visualized portion of the orbits is intact. SKULL: The calvaria is intact. No evidence of skull fracture. CONCLUSION: No acute intracranial disease. Óscar Bravo MD on January 19, 2017 at 19:28 Board Certified Radiologist. This report was verified electronically.
--- NOTE | 2017-01-19 19:31 | RADRPT ---
EXAM DATE/TIME: 01/19/2017 19:18 [facility] COMPARISON: No previous studies available for comparison. INDICATIONS : Chest pain with left arm numbness. IV CONTRAST: 70 cc Omnipaque 350 (iohexol) IV RADIATION DOSE: 19.48 CTDIvol (mGy) MEDICAL HISTORY : Asthma SURGICAL HISTORY : None. ENCOUNTER: Initial ACUITY: 1 day PAIN SCALE: 5/10 LOCATION: Bilateral chest TECHNIQUE: Volumetric scanning of the chest was performed using a pulmonary embolism protocol MIP images were re constructed. Using automated exposure control and adjustment of the mA and/or kV according to patien t size, radiation dose was kept as low as reasonably achievable to obtain optimal diagnostic quality images. DICOM format image data is available electronically for review and comparison. Follow-up recommendations for incidentally detected pulmonary nodules are based at a minimum on nodul e size and patient risk factors according to Fleischner Society Guidelines. FINDINGS: PULMONARY ARTERIES: No filling defects are seen in the pulmonary arteries through the segmental level. LUNGS: There is no consolidation or pneumothorax . No concerning pulmonary nodule is visualized. PLEURAE: There is no pleural thickening or pleural effusion. MEDIASTINUM: There is good visualization of the great vessels of the middle mediastinum. No evidence of mediastin al or hilar adenopathy/mass. Residual thymus. MUSCULOSKELETAL: Within normal limits for patient age. MISCELLANEOUS: The visualized upper abdominal organs demonstrate no acute abnormality. CONCLUSION: 1. No evidence for pulmonary embolism. 2. No pneumonia. 3. Residual thymus noted. Óscar Bravo MD on January 19, 2017 at 19:29 Board Certified Radiologist. This report was verified electronically.
--- NOTE | 2017-01-19 20:10 | PD ---
Data Data Last Documented VS Vital Signs Date Time Temp Pulse Resp B/P Pulse Ox O2 Delivery O2 Flow Rate FiO2 01/19/17 18:32 80 16 99/56 99 Room Air 01/19/17 14:53 98.2 Orders Electrocardiogram (01/19/17 15:26) Complete Blood Count With Diff (01/19/17 15:26) Basic Metabolic Panel (Bmp) (01/19/17 15:26) Ckmb (Isoenzyme) Profile (01/19/17 15:26) Troponin I (01/19/17 15:26) Chest, Single Ap (01/19/17 15:26) Act Partial Throm Time (Ptt) (01/19/17 15:26) Prothrombin Time / Inr (Pt) (01/19/17 15:26) Ct Brain W/O Iv Contrast(Rout) (01/19/17 ) D-Dimer (01/19/17 16:13) CKMB (01/19/17 15:42) CKMB% (01/19/17 15:42) Ct Pulmonary Angiogram (01/19/17 ) Iohexol 350 Inj (Omnipaque 350 Inj) (01/19/17 19:24) Admit Order (Ed Use Only) (01/19/17 ) Vitamin B12 (01/19/17 15:42) C-Reactive Protein (Crp) (01/19/17 15:42) Folate, Serum (01/19/17 15:42) Thyroid Stimulating Hormone (01/19/17 15:42) Labs Laboratory Tests Test 01/19/17 01/19/17 15:42 16:20 White Blood Count 7.5 TH/MM3 Red Blood Count 3.54 MIL/MM3 Hemoglobin 10.9 GM/DL Hematocrit 32.2 % Mean Corpuscular Volume 91.0 FL Mean Corpuscular Hemoglobin 30.7 PG Mean Corpuscular Hemoglobin 33.8 % Concent Red Cell Distribution Width 13.9 % Platelet Count 185 TH/MM3 Mean Platelet Volume 9.5 FL Neutrophils (%) (Auto) 63.5 % Lymphocytes (%) (Auto) 28.1 % Monocytes (%) (Auto) 6.0 % Eosinophils (%) (Auto) 1.8 % Basophils (%) (Auto) 0.6 % Neutrophils # (Auto) 4.7 TH/MM3 Lymphocytes # (Auto) 2.1 TH/MM3 Monocytes # (Auto) 0.4 TH/MM3 Eosinophils # (Auto) 0.1 TH/MM3 Basophils # (Auto) 0.0 TH/MM3 CBC Comment DIFF FINAL Differential Comment Prothrombin Time 10.7 SEC Prothromb Time International 1.0 RATIO Ratio Activated Partial 26.3 SEC Thromboplast Time Sodium Level 140 MEQ/L Potassium Level 3.6 MEQ/L Chloride Level 107 MEQ/L Carbon Dioxide Level 26.0 MEQ/L Anion Gap 7 MEQ/L Blood Urea Nitrogen 8 MG/DL Creatinine 0.62 MG/DL Estimat Glomerular Filtration 114 ML/MIN Rate Random Glucose 86 MG/DL Calcium Level 9.0 MG/DL Total Creatine Kinase 469 U/L Creatine Kinase MB 0.8 NG/ML Creatine Kinase MB % 0.2 % Troponin I LESS THAN 0.02 NG/ML C-Reactive Protein 0.75 MG/DL Vitamin B12 Level 404 PG/ML Folate 18.4 NG/ML Thyroid Stimulating Hormone 0.785 uIU/ML 3rd Gen D-Dimer Quantitative (PE/DVT) 1.05 MG/L FEU [facility] Supervised Visit with EDITH: Yes Narrative Course Patient care assumed from Dr. Andino at 1900. This is a 31-year-old female who is status post salpingectomy for an ectopic 2 days ago presents emergency Department with numbness and tingling on the left side of her face as well as weakness in her left arm and hand. 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 Cranial nerves II through XII grossly intact and nonfocal. Patient's CT head negative. The patient was also complaining of some nondescript chest pain EKG troponin were negative and CT pulmonary embolus and were negative. Patient was discussed with Dr. Christianson for observation status for stroke versus TIA and he is agreeable. Patient does not seem to have any risk factors for stroke however the patient does have a cousin who had a stroke at age 15 leaving severe residual deficits. Diagnosis Primary Impression: Left-sided weakness Admitting Information Admitting Physician Requests: Observation Condition: Stable Manpreet Mcclain MD Jan 19, 2017 20:10
[2017-01-19] MEDS ORDERED: ASPIRIN 325 MG TAB PO ONE (20:30)
[2017-01-19] MEDS ORDERED: SODIUM CHLORIDE 0.9% FLUSH 5 ML FLUSH IV FLUSH PRN (20:45)
--- NOTE | 2017-01-19 20:55 | HHI.HP ---
HPI Service [facility] Hospitalists Primary Care Physician Gia Jorgensen Admission Diagnosis Possible Stroke Chief Complaint: left UE/face tingling, numbness, LUE weakness Travel History International Travel<30 Days: No Contact w/Intl Traveler <30 Da: No Traveled to Known Affected Are: No History of Present Illness 31-year-old relatively healthy female who is 2 days status post salpingectomy for a topic resents for left upper extremity paresthesias and weakness as well as left facial weakness. She reports she had been her usual state of health and was recovering from the recent surgery when she noted some tingling in her left upper extremity this morning around 8 AM. She subsequently noted some tingling of her left face and weakness in her left upper extremity around noon today. These findings prompted a visit to the ER where she was evaluated for possible TIA. She reports she still has some tingling and weakness in the left upper extremity and also some tingling of her left face. Symptoms have not progressed since noon. Her CT brain is negative for acute findings. Her labs are essentially unremarkable except for slight anemia. She notes that she had some vaginal bleeding 1 today but no other vaginal bleeding. In the vaginal bleeding today was not heavy. She denies any head trauma or unusual neck manipulation of late. She does state that her neck is felt somewhat sore or tight since the recent salpingectomy. She's had no fevers or chills or recent foreign travel. She's had no loss of bowel or bladder function. She has not noted a rash and has not had a recent tick bite. She does note that she had a cousin in [place] who apparently had a stroke at age 15 and she is not clear on the etiology but notes that that cousin still "can't move one side of her body". Review of Systems Constitutional: DENIES: Diaphoretic episodes, Fatigue, Fever, Weight gain, Weight loss, Chills, Dizziness, Change in appetite, Night Sweats Endocrine: COMPLAINS OF: Abnorml menstrual pattern Eyes: DENIES: Blurred vision, Diplopia, Eye inflammation, Eye pain, Vision loss , Photosensitivity, Double Vision Ears, nose, mouth, throat: DENIES: Tinnitus, Hearing loss, Vertigo, Nasal discharge, Oral lesions, Throat pain, Hoarseness, Ear Pain, Running Nose, Epistaxis, Sinus Pain, Toothache, Odynophagia Respiratory: DENIES: Apneas, Cough, Snoring, Wheezing, Hemoptysis, Sputum production, Shortness of breath Cardiovascular: COMPLAINS OF: Chest pain, DENIES: Palpitations, Syncope, Dyspnea on Exertion, PND, Lower Extremity Edema, Orthopnea, Claudication Gastrointestinal: COMPLAINS OF: Abdominal pain, Nausea, DENIES: Black stools, Bloody stools, BRB per rectum, Constipation, Diarrhea, GERD, Reflux, Vomiting, Difficulty Swallowing, Anorexia, See HPI Genitourinary: COMPLAINS OF: Abnormal vaginal bleeding Musculoskeletal: COMPLAINS OF: Neck pain, DENIES: Joint pain, Muscle aches, Stiffness, Joint Swelling, Back pain Integumentary: DENIES: Abnormal pigmentation, Pruritus, Rash, Nail changes, Breast masses, Breast skin changes, Nipple discharge Hematologic/lymphatic: DENIES: Bruising, Lymphadenopathy Immunologic/allergic: DENIES: Eczema, Urticaria Neurologic: COMPLAINS OF: Localized weakness, Paresthesias, DENIES: Abnormal gait, Headache, Seizures, Speech Problems, Tremor, Poor Balance Psychiatric: DENIES: Anxiety, Confusion, Mood changes, Depression, Hallucinations, Agitation, Suicidal Ideation, Homicidal Ideation, Delusions, History of Bipolar, History of Schizophrenia Past Family Social History Past Medical History 2 "miscarriages" with noted miscarriages above Past Surgical History Salpingectomy done January 17 otherwise no surgeries Reported Medications vitamin Recently started Toradol orally after surgery Allergies: Coded Allergies: No Known Allergies (Unverified , 01/19/17) Family History Reportedly 15-year-old cousin that had a stroke Denies any hypercoagulable disease in the family to her knowledge. No other strokes in the family specifically none in a first-degree relative. 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 Alert and oriented. Cooperative. SKIN: No rashes, ecchymoses or lesions except slight facial acne. Cool and dry. HEAD: Atraumatic. Normocephalic. No temporal or scalp tenderness. EYES: Pupils equal round and reactive. Extraocular motions intact. No scleral icterus. No injection or drainage. ENT: Nose without bleeding, purulent drainage or septal hematoma. Uvula midline. Airway patent. NECK: Trachea midline. No JVD or lymphadenopathy. Supple, nontender, no meningeal signs. CARDIOVASCULAR: Regular rate and rhythm without murmurs, gallops, or rubs. RESPIRATORY: Clear to auscultation. Breath sounds equal bilaterally. No wheezes , rales, or rhonchi. GASTROINTESTINAL: Abdomen soft, nondistended. Mild appropriate postsurgical tenderness on exam. Umbilicus noted with Dermabond and left lower quadrant with well approximated surgical wound to No hepato-splenomegaly, or palpable masses. Bowel sounds normal. MUSCULOSKELETAL: Extremities without clubbing, cyanosis, or edema. No joint tenderness, effusion, or edema noted. No calf tenderness. NEUROLOGICAL: Awake and alert. Cranial nerves II through XII intact. Normal speech. For the half out of 5 strength left upper extremity. Sensation to light touch intact. deep tendon reflexes intact and symmetrical. Laboratory Laboratory Tests Test 01/19/17 01/19/17 15:42 16:20 White Blood Count 7.5 Red Blood Count 3.54 Hemoglobin 10.9 Hematocrit 32.2 Mean Corpuscular Volume 91.0 Mean Corpuscular Hemoglobin 30.7 Mean Corpuscular Hemoglobin 33.8 Concent Red Cell Distribution Width 13.9 Platelet Count 185 Mean Platelet Volume 9.5 Neutrophils (%) (Auto) 63.5 Lymphocytes (%) (Auto) 28.1 Monocytes (%) (Auto) 6.0 Eosinophils (%) (Auto) 1.8 Basophils (%) (Auto) 0.6 Neutrophils # (Auto) 4.7 Lymphocytes # (Auto) 2.1 Monocytes # (Auto) 0.4 Eosinophils # (Auto) 0.1 Basophils # (Auto) 0.0 CBC Comment DIFF FINAL Differential Comment Prothrombin Time 10.7 Prothromb Time International 1.0 Ratio Activated Partial 26.3 Thromboplast Time Sodium Level 140 Potassium Level 3.6 Chloride Level 107 Carbon Dioxide Level 26.0 Anion Gap 7 Blood Urea Nitrogen 8 Creatinine 0.62 Estimat Glomerular Filtration 114 Rate Random Glucose 86 Calcium Level 9.0 Total Creatine Kinase 469 Creatine Kinase MB 0.8 Creatine Kinase MB % 0.2 Troponin I LESS THAN 0.02 D-Dimer Quantitative (PE/DVT) 1.05 Result Diagram: 01/19/17 1542 01/19/17 1542 Imaging Last 72 hours Impressions Chest X-Ray 01/19/17 1526 Signed Impressions: Service Date/Time: Thursday, January 19, 2017 15:48 - CONCLUSION: No acute cardiopulmonary process. Timur Thompson MD Head CT 01/19/17 0000 Signed Impressions: Service Date/Time: Thursday, January 19, 2017 19:14 - CONCLUSION: No acute intracranial disease. Óscar Bravo MD CT Angiography 01/19/17 0000 Signed Impressions: Service Date/Time: Thursday, January 19, 2017 19:18 - CONCLUSION: 1. No evidence for pulmonary embolism. 2. No pneumonia. 3. Residual thymus noted. Óscar Bravo MD Assessment and Plan Problem List: (1) Neurological deficit present Status: Acute Plan: Patient does have some slight weakness in left upper extremity and reported persistent paresthesia Deep tendon reflexes and sensation to light touch are normal on exam. We'll check labs, further imaging studies and echo. It is noted that she's had 2 miscarriages and no live nurse. I have ordered a coagulation profile Code Status Full Discussed Condition With Patient and ER provider. Sabino Christianson MD PhD Jan 19, 2017 20:55
[2017-01-19] MEDS: SODIUM CHLORIDE 0.9% FLUSH 5 ML FLUSH IV FLUSH SCH (21:00)
--- NOTE | 2017-01-19 22:05 | RADRPT ---
EXAM DATE/TIME: 01/19/2017 21:34 [facility] COMPARISON: No previous studies available for comparison. INDICATIONS : Cerebrovascular accident. MEDICAL HISTORY : Stroke. Asthma. SURGICAL HISTORY : None. ENCOUNTER: Initial ACUITY: 1 day PAIN SCORE: 7/10 LOCATION: Bilateral neck PEAK SYSTOLIC VELOCITIES (cm/sec): ICA/CCA RATIO: Right: 1.1 Left: 0.9 ICA: Right: 95.3 Left: 100.3 CCA: Right: 87.1 Left: 116.3 ECA: Right: 68.2 Left: 78.6 VERTEBRAL: Right: 38.6 antegrade Left: 54.8 antegrade Elevated flow velocities and ICA/CCA ratios have been found to correlate with increased degrees of vessel stenosis, calculated as percentage of diameter relative to a normal segment of distal ICA/CCA FINDINGS: RIGHT CAROTID: No significant stenosis is visualized. The waveforms are within normal limits. LEFT CAROTID: No significant stenosis is visualized. The waveforms are within normal limits. VERTEBRAL ARTERIES: Antegrade flow is seen in both vertebral arteries. MISCELLANEOUS: None. CONCLUSION: No hemodynamically significant stenosis in either carotid artery. Óscar Bravo MD on January 19, 2017 at 22:03 Board Certified Radiologist. This report was verified electronically.
[2017-01-19 23:49] VITALS: BP 109/54; PULSE 75; RESP 18; TEMP 97.8; O2SAT 100
[2017-01-20 04:13] VITALS: BP 106/52; PULSE 64; RESP 18; TEMP 98.2; O2SAT 100
[2017-01-20 08:00] VITALS: BP 115/55; PULSE 74; RESP 18; TEMP 96.1; O2SAT 100
[2017-01-20] MEDS ORDERED: ACETAMINOPHEN 325 MG TAB PO PRN (08:30)
[2017-01-20] MEDS ORDERED: ONDANSETRON HCL 4 MG/2 ML VIAL IV PRN (08:30)
[2017-01-20] MEDS: SODIUM CHLORIDE 0.9% FLUSH 5 ML FLUSH IV FLUSH SCH (09:00)
--- NOTE | 2017-01-20 10:01 | HHI.PR ---
Subjective Remarks Pt reports that this morning that she had a lot of heavy vaginal bleeding with a lot of clots and cramping. She would like to speak with her surgeon, Dr. Chandra, regarding this today as she was told that she should not be having much bleeding. Pt states that the numbness sensation in her left arm started yesterday morning when she woke up and then she noted this same numbness and tingling on the left side of her face. She reports that she has had a lot of upper back/shoulder strain and tightness since the surgery on 01/17 which has been worse on the left side. She is weaker in the LUE. Objective Vitals Vital Signs Date Time Temp Pulse Resp B/P Pulse Ox O2 Delivery O2 Flow Rate FiO2 01/20/17 08:00 96.1 74 18 115/55 100 01/20/17 04:13 98.2 64 18 106/52 100 01/19/17 23:49 97.8 75 18 109/54 100 01/19/17 18:32 80 16 99/56 99 Room Air 01/19/17 14:53 98.2 73 14 118/63 99 01/19/17 01/19/17 01/20/17 15:00 23:00 07:00 Intake Total 200 ml Balance 200 ml Intake Oral 200 ml Result Diagram: 01/19/17 1542 01/19/17 1542 Other Results Laboratory Tests Test 01/19/17 01/19/17 15:42 16:20 White Blood Count 7.5 TH/MM3 Red Blood Count 3.54 MIL/MM3 Hemoglobin 10.9 GM/DL Hematocrit 32.2 % Mean Corpuscular Volume 91.0 FL Mean Corpuscular Hemoglobin 30.7 PG Mean Corpuscular Hemoglobin 33.8 % Concent Red Cell Distribution Width 13.9 % Platelet Count 185 TH/MM3 Mean Platelet Volume 9.5 FL Neutrophils (%) (Auto) 63.5 % Lymphocytes (%) (Auto) 28.1 % Monocytes (%) (Auto) 6.0 % Eosinophils (%) (Auto) 1.8 % Basophils (%) (Auto) 0.6 % Neutrophils # (Auto) 4.7 TH/MM3 Lymphocytes # (Auto) 2.1 TH/MM3 Monocytes # (Auto) 0.4 TH/MM3 Eosinophils # (Auto) 0.1 TH/MM3 Basophils # (Auto) 0.0 TH/MM3 CBC Comment DIFF FINAL Differential Comment Prothrombin Time 10.7 SEC Prothromb Time International 1.0 RATIO Ratio Activated Partial 26.3 SEC Thromboplast Time Sodium Level 140 MEQ/L Potassium Level 3.6 MEQ/L Chloride Level 107 MEQ/L Carbon Dioxide Level 26.0 MEQ/L Anion Gap 7 MEQ/L Blood Urea Nitrogen 8 MG/DL Creatinine 0.62 MG/DL Estimat Glomerular Filtration 114 ML/MIN Rate Random Glucose 86 MG/DL Calcium Level 9.0 MG/DL Total Creatine Kinase 469 U/L Creatine Kinase MB 0.8 NG/ML Creatine Kinase MB % 0.2 % Troponin I LESS THAN 0.02 NG/ML C-Reactive Protein 0.75 MG/DL Vitamin B12 Level 404 PG/ML Folate 18.4 NG/ML Thyroid Stimulating Hormone 0.785 uIU/ML 3rd Gen D-Dimer Quantitative (PE/DVT) 1.05 MG/L FEU Imaging Last Impressions Chest X-Ray 01/19/17 1526 Signed Impressions: Service Date/Time: Thursday, January 19, 2017 15:48 - CONCLUSION: No acute cardiopulmonary process. Timur Thompson MD Head CT 01/19/17 0000 Signed Impressions: Service Date/Time: Thursday, January 19, 2017 19:14 - CONCLUSION: No acute intracranial disease. Óscar Bravo MD Carotid Artery Ultrasound 01/19/17 0000 Signed Impressions: Service Date/Time: Thursday, January 19, 2017 21:34 - CONCLUSION: No hemodynamically significant stenosis in either carotid artery. Óscar Bravo MD CT Angiography 01/19/17 0000 Signed Impressions: Service Date/Time: Thursday, January 19, 2017 19:18 - CONCLUSION: 1. No evidence for pulmonary embolism. 2. No pneumonia. 3. Residual thymus noted. Óscar Bravo MD Objective Remarks General: NAD, AAOx3 Chest: CTA Cardiac: Regular Abd: +BS, soft ND, incisions are c/d/i with steri strips in place on two of the incisions Ext: No edema A/P Problem List: (1) Neurological deficit present Status: Acute Plan: - Pt is a 31 y/o female who recently underwent laparoscopic right salpingectomy for ruptured atopic on 01/17/17 - Pt developed numbness sensation in her left arm which started yesterday morning when she woke up and then she noted this same numbness and tingling on the left side of her face later that morning. This prompted her to report to the ED for evaluation. - She reports that she has had a lot of upper back/shoulder strain and tightness since the surgery on 01/17 which has been worse on the left side. - Patient does have some slight weakness in left upper extremity and reported persistent paresthesia, deep tendon reflexes and sensation to light touch are normal on exam. - CT Brain --> Negative for acute disease - Pulmonary Angiogram --> No evidence for pulmonary embolism. No pneumonia. Residual thymus noted. - Carotid US --> Negative. - MRI/MRA brain --> Pending - 2D echo --> Pending - Hypercoag panel --> Pending - Consider a trial of muscle relaxers to see if this eases her back/shoulder pain - DVT prophylaxis with SCDs (2) Hemoperitoneum due to rupture of right tubal ectopic Status: Resolved Plan: - See above. - Pt reports that this morning that she had a lot of heavy vaginal bleeding with a lot of clots and cramping. - She would like to speak with her surgeon, Dr. Chandra, regarding this today as she was told that she should not be having much bleeding. - Consult Roofer Assistant, Dr. Chandra, to come speak with the patient. Assessment and Plan Patient examined. Assessment and plan formulated with Lois Jackson PA-C. I agree with the above. only sx's that persist is left neck muscle spasm and some parasthesis down back of left arm to elbow.. mri/a and carotids negative for cva or vascular dz. cta chest in ED negative. pt recently was intubated after tubal . could consider cervical nerve impingement or irritation causing her sx's. I offered to start muscle relaxer and nsaid and observe overnight...if no improvement then mri c spine. pt and kindly refused and wanted to do the medicine trial as outpt and f/u pcp if no better. hypercoag panel pending. pcp office called to fu pt and her pending studies. pt understood. Lois Jackson Jan 20, 2017 10:00 Woody Cao MD Jan 20, 2017 22:08
[2017-01-20 10:54] LABS: AUTOMATED NEUTROPHIL # 3.3 TH/MM3 (1.8-7.7); BASOPHIL % 0.7 % (0.0-2.0); EOSINOPHIL # 0.2 TH/MM3 (0-0.4); EOSINOPHIL % 2.7 % (0.0-4.0); HEMATOCRIT 32.5 % (35.0-46.0); HEMO FLAGS DIFF FINAL; LYMPH % 29.7 % (9.0-44.0); LYMPHOCYTE # 1.7 TH/MM3 (1.0-4.8); MEAN CELL VOLUME 91.4 FL (80.0-100.0); MEAN CORPUSCULAR HGB CONC 32.8 % (32.0-36.0); NEUT % 58.9 % (16.0-70.0); PLATELET COUNT 185 TH/MM3 (150-450); RED BLOOD COUNT 3.55 MIL/MM3 (4.00-5.30); RED CELL DISTRIBUTION WIDTH 13.9 % (11.6-17.2); WHITE BLOOD COUNT 5.7 TH/MM3 (4.0-11.0)
[2017-01-20 11:02] LABS: CREATINE KINASE 234 U/L (26-192); LDL CHOLESTEROL 116 MG/DL (0-99)
[2017-01-20 11:37] LABS: CKMB LESS THAN 0.5 NG/ML (0.5-3.6)
[2017-01-20 12:00] VITALS: BP 130/71; PULSE 86; RESP 18; TEMP 97.3; O2SAT 100
--- NOTE | 2017-01-20 12:32 | RADRPT ---
EXAM DATE/TIME: 01/20/2017 11:35 [facility] COMPARISON: CT BRAIN W/O CONTRAST, January 19, 2017, 19:14. INDICATIONS : Altered mental status. CVA. Left facial and arm numbness. MEDICAL HISTORY : Miscarriages. SURGICAL HISTORY : Tubal ligation. ENCOUNTER: Subsequent ACUITY: 2 day PAIN SCORE: 0/10 LOCATION: head. TECHNIQUE: Multiplanar, multisequence MRI of the brain was performed without contrast. FINDINGS: CEREBRUM: The ventricles are normal for age. No evidence of midline shift, mass lesion, hemorrhage or acute in farction. No extraaxial fluid collections are seen. The pituitary gland and suprasellar cistern are normal in configuration. WHITE MATTER: No significant signal abnormalities are seen in the white matter. POSTERIOR FOSSA: The cerebellum and brainstem are intact. The 4th ventricle is midline. The cerebellopontine angle is unremarkable. The cerebellar tonsils are normal in position. DIFFUSION IMAGING: No focal areas of restricted diffusion are seen. No evidence of acute infarction. EXTRACRANIAL: The visualized portions of the orbits and paranasal sinuses are unremarkable. CONCLUSION: No acute disease. Manpreet Canas MD on January 20, 2017 at 12:30 Board Certified Radiologist. This report was verified electronically.
--- NOTE | 2017-01-20 12:33 | RADRPT ---
EXAM DATE/TIME: 01/20/2017 11:35 [facility] COMPARISON: No previous studies available for comparison. INDICATIONS : Altered mental status. CVA. Left facial and arm numbness. MEDICAL HISTORY : Miscarriages. SURGICAL HISTORY : Tubal ligation. ENCOUNTER: Subsequent ACUITY: 2 day PAIN SCORE: 0/10 LOCATION: head. Please note a normal MRA of the brain does not entirely exclude the possibility of a small aneurysm, nor the possibility of distal intracranial vessel disease. TECHNIQUE: 3D time of flight MRA was performed. Source images, multiplanar STS MIP, and 3D volume MIP reconstru ctions were reviewed. FINDINGS: There is excellent visualization of the major intracranial arteries out to the second-order branch ve ssels. There is no evidence for aneurysm, vessel truncation or stenosis, and no evidence for vascula r malformation. Patent bilateral posterior communicating arteries are noted. CONCLUSION: 1. Patent bilateral posterior communicating arteries. 2. No significant stenosis, occlusion or aneurysm formation. Manpreet Canas MD on January 20, 2017 at 12:31 Board Certified Radiologist. This report was verified electronically.
[2017-01-20] MEDS ORDERED: CYCL5TAB PO (15:14)
[2017-01-20] MEDS ORDERED: NAPR500 PO (15:14)
[2017-01-20 15:15] VITALS: BP 125/67; PULSE 72; RESP 18; TEMP 97.8; O2SAT 100
[2017-01-20] MEDS ORDERED: CYCLOBENZAPRINE HCL 10 MG TAB PO ONE (15:15)
--- NOTE | 2017-01-20 15:22 | HHI.DCPOC ---
Discharge Care Plan Diagnosis: (1) Left-sided weakness (2) Hemoperitoneum due to rupture of right tubal ectopic Goals to Promote Your Health - Patient is being prescribed Flexeril 5mg which can be taken every 8 hours as needed for muscle spasm and Naprosyn 500mg twice daily which should be taken with food. - If there is no improvement in the neurological symptoms of numbness in the left arm than she needs to be seen by Dr. Jorgensen within the next 3-5 days. - There are labs that are pending which will need to be followed up on by her PCP - Echocardiogram of the heart is pending and will need to be followed up on with her PCP as well - Any worsening or progression of the symptoms she should return to the ER for further evaluation. Directions to Meet Your Goals Take your medications as prescribed Follow your dietary instruction Follow activity as directed Keep your appointments as scheduled Take your immunizations and boosters as scheduled If your symptoms worsen call your PCP, if no PCP go to Urgent Care Center or Emergency Room Smoking is Dangerous to Your Health. Avoid second hand smoke Call the 24-hour hour crisis hotline for domestic abuse at Lois Jackson Jan 20, 2017 15:22
--- NOTE | 2017-01-20 15:52 | PD.CONS ---
HPI Chief Complaint VAGINAL BLEEDING AFTER TREATMENT FOR ECTOPIC Travel History International Travel<30 Days: No Contact w/Intl Traveler<30Days: No Known Affected Area: No History Past Medical History Narrative Medical HAD LSCOPE FOR RIGHT ECTOPIC 01/17 HAD PSEUDOSAC IN UTERUS NO D/C DONE PT WITH BLEEDING C/W SHEDDING ENDOMETRIAL CAST Allergies-Medications (Allergen,Severity, Reaction): Coded Allergies: No Known Allergies (Unverified , 01/19/17) Home Meds Reported Medications Ketorolac 10 Mg Tab10 Mg PO Q6HR PRN (PAIN) Ref 0 01/17/17 Vit/Iron Fumarate/FA ( Vitamin Formula Tb)1 Each Tablet Daily 01/17/17 Physical Exam Vital Signs Date Time Temp Pulse Resp B/P Pulse Ox O2 Delivery O2 Flow Rate FiO2 01/20/17 15:15 97.8 72 18 125/67 100 01/20/17 12:00 97.3 86 18 130/71 100 01/20/17 08:00 96.1 74 18 115/55 100 01/20/17 04:13 98.2 64 18 106/52 100 01/19/17 23:49 97.8 75 18 109/54 100 01/19/17 18:32 80 16 99/56 99 Room Air Narrative Data Data Orders Ct Brain W/O Iv Contrast(Rout) (01/19/17 ) D-Dimer (01/19/17 16:13) Ct Pulmonary Angiogram (01/19/17 ) Iohexol 350 Inj (Omnipaque 350 Inj) (01/19/17 19:24) Admit Order (Ed Use Only) (01/19/17 ) Place In Observation (01/19/17 ) Benefits Advisor / Telemetry MARIVEL.Q8H (01/19/17 20:19) Neuro Checks . ORDERED (01/19/17 20:19) Diet Heart Healthy (01/20/17 Breakfast) Activity Oob With Assistance (01/19/17 20:19) Consult Pt Eval & Tx Oob (01/19/17 20:19) Lipid Profile (01/20/17 06:00) Complete Blood Count With Diff (01/20/17 06:00) Cassy Screen (01/19/17 20:19) Creatine Kinase (Cpk) (01/20/17 06:00) Vital Signs (Adult) MARIVEL.Q4H (01/19/17 20:19) Aspirin (Aspirin) (01/19/17 20:30) Place In Observation (01/19/17 ) Code Status (01/19/17 20:43) Vital Signs (Adult) Q2HX12,Q4H (01/19/17 20:43) Nih Stroke Scale - Nihss .Daily (01/19/17 20:43) Neuro Checks Q2HX12,Q4H (01/19/17 20:43) Notify Dr: Other (01/19/17 20:43) Remove Urinary Catheter .ONCE (01/19/17 20:43) Case Management Consult (01/19/17 ) Us Carotid Arteries Comp Bilat (01/19/17 ) Sodium Chloride 0.9% Flush (Ns Flush) (01/19/17 21:00) Sodium Chloride 0.9% Flush (Ns Flush) (01/19/17 20:45) Benefits Advisor / Telemetry MARIVEL.Q8H (01/19/17 20:43) Consult Stoke Navigator (01/19/17 ) Scd Bilateral/Knee High MARIVEL.BID (01/19/17 20:43) Coag Profile (01/19/17 20:45) Echo 2d Comp With Doppler (01/20/17 ) Acetaminophen (Tylenol) (01/20/17 08:30) Ondansetron Inj (Zofran Inj) (01/20/17 08:30) Consult Gynecology (01/20/17 ) (Hub Use Only)Inp Phy Cons/Ref (01/20/17 ) Scd Bilateral/Knee High MARIVEL.QSHIFT (01/20/17 10:31) CKMB (01/20/17 09:06) CKMB% (01/20/17 09:06) Mra Brain W/O Contrast (Cow) (01/20/17 ) Mri Brain W/O Contrast (01/20/17 ) Anti-Phospholipid Abs W/Lupus (01/20/17 12:42) Factor V Leiden (01/20/17 12:42) Prothrombin [id number] Mutation (01/20/17 12:42) Lupus Anticoagulant Drvvt (01/20/17 12:42) Naproxen (Naprosyn) (01/20/17 16:00) Cyclobenzaprine (Flexeril) (01/20/17 15:15) Attending Discharge Order (01/20/17 ) Labs Laboratory Tests Test 01/19/17 01/20/17 16:20 09:06 D-Dimer Quantitative (PE/DVT) 1.05 White Blood Count 5.7 Red Blood Count 3.55 Hemoglobin 10.6 Hematocrit 32.5 Mean Corpuscular Volume 91.4 Mean Corpuscular Hemoglobin 30.0 Mean Corpuscular Hemoglobin 32.8 Concent Red Cell Distribution Width 13.9 Platelet Count 185 Mean Platelet Volume 9.3 Neutrophils (%) (Auto) 58.9 Lymphocytes (%) (Auto) 29.7 Monocytes (%) (Auto) 8.0 Eosinophils (%) (Auto) 2.7 Basophils (%) (Auto) 0.7 Neutrophils # (Auto) 3.3 Lymphocytes # (Auto) 1.7 Monocytes # (Auto) 0.4 Eosinophils # (Auto) 0.2 Basophils # (Auto) 0.0 CBC Comment DIFF FINAL Differential Comment Total Creatine Kinase 234 Creatine Kinase MB LESS THAN 0.5 Creatine Kinase MB % 0.2 Triglycerides Level 145 Cholesterol Level 192 LDL Cholesterol 116 HDL Cholesterol 47.0 Cholesterol/HDL Ratio 4.08 [facility] Medical Record Reviewed: Yes Interpretation(s) NORMAL POST OP COURSE FOR ECTOPIC F/U IN MY OFFICE THIS WEEK. HAS I/P DISCUSSED WITH PATIENT THAT I COULD NOT SEE HER UNTIL LATER TODAY AND SHE WAS AGREEABLE WITH THAT Admitting diagnosis: Possible Stroke Condition: Stable Asad Chandra MD Jan 20, 2017 15:52
[2017-01-20] MEDS ORDERED: NAPROXEN 500 MG TAB PO SCH (16:00)
--- NOTE | 2017-01-20 21:15 | EKG ---
Date Performed: 01/19/2017 Time Performed: 15:32:24 PTAGE: 31 years EKG: Sinus rhythm NORMAL ECG NO PREVIOUS TRACING DOCTOR: [place] Barrera Interpretating Date/Time 01/20/2017 21:14:21
--- NOTE | 2017-01-20 22:13 | ECHRPT ---
Indication: Transient cerebral ischemic attack, unspecified CONCLUSIONS Normal left ventricular size and wall thickness. The left ventricular systolic function is normal wi th an estimated ejection fraction in the range of 60-65%. Left ventricular diastolic function parameters a re normal. BP: 115 / 55 HR: 74 Rhythm: MEASUREMENTS (Male / Female) Normal Values Technical Quality: 2D ECHO LV Diastolic Diameter PLAX 3.4 cm 4.2 - 5.9 / 3.9 - 5.3 cm LV Systolic Diameter PLAX 2.4 cm IVS Diastolic Thickness 0.7 cm 0.6 - 1.0 / 0.6 - 0.9 cm LVPW Diastolic Thickness 0.7 cm 0.6 - 1.0 / 0.6 - 0.9 cm LV Relative Wall Thickness 0.4 RV Internal Dim ED PLAX 1.5 cm M-MODE Aortic Root Diameter MM 2.4 cm LA Systolic Diameter MM 3.1 cm LA Ao Ratio MM 1.3 AV Cusp Separation MM 1.6 cm DOPPLER Mitral E Point Velocity 121.0 cm/s Mitral A Point Velocity 66.5 cm/s Mitral E to A Ratio 1.8 FINDINGS LEFT VENTRICLE Normal left ventricular size and wall thickness. The left ventricular systolic function is normal wi th an estimated ejection fraction in the range of 60-65%. Left ventricular diastolic function parameters a re normal. RIGHT VENTRICLE Normal right ventricular size and systolic function. LEFT ATRIUM The left atrial size is normal. RIGHT ATRIUM The right atrial size is normal. ATRIAL SEPTUM Normal atrial septal thickness without atrial level shunting by limited color doppler interrogation. AORTA The aortic root and proximal ascending aorta are normal in size on limited imaging. MITRAL VALVE Structurally normal mitral valve. No mitral valve stenosis or regurgitation. AORTIC VALVE Trileaflet aortic valve. No aortic valve stenosis or regurgitation. TRICUSPID VALVE Structurally normal tricuspid valve. No tricuspid valve stenosis or regurgitation. PULMONARY VALVE The pulmonary valve is not well visualized. VESSELS The inferior vena cava is normal in size. PERICARDIUM No pericardial effusion. [place] Barrera MD, FACC (Electronically Signed) Final Date:20 January 2017 22:12 Amended: 20 January 2017 22:13
[2017-01-26 13:51] LABS: BETA2 GLYCOPROTEIN I AB IGA LESS THAN 9.0 SAU (< OR = 20)
== END 2017-01-20 17:40 | disposition home or self-care (01) ==
LOC: NEPD 14:49 → NEDA 20:11 → NEPGCP 22:20
PROVIDERS: ADMIT Hospitalist; ATTEND Hospitalist
DX: R53.1 Weakness (principal); R29.818 Other symptoms and signs involving the nervous system; K66.1 Hemoperitoneum; R20.2 Paresthesia of skin; R20.0 Anesthesia of skin; O08.1 Delayed or excessive hemorrhage following ectopic and molar pregnancy; J45.909 Unspecified asthma, uncomplicated; R07.9 Chest pain, unspecified
CPT/HCPCS: 70450; 70544; 70551; 71010; 71275; 80048; 80061; 81240; 81241; 82550; 82552; 82607; 82746; 84443; 84484; 84703; 85025; 85379; 85610; 85613; 85730; 86140; 86146; 86147; 93005; 93306; 93880; 97161; 99285; G0378; G8987; G8988; G8989; Q9967